=== PATIENT | female | born 1945 | race Caucasian/White ===

== ENCOUNTER 2020-08-11 15:50 | Inpatient (IN) | payer MEDICARE, OTHER ==
[~2020-08-11] VITALS: Ht 170.2 cm; Wt 90.0 kg
[2020-08-11 16:24] LABS: BASOPHILS % 0.5 % (0.0-2.0); HEMATOCRIT. 42.9 % (36.0-48.0); HEMOGLOBIN. 14.6 g/dL (12.0-16.0); LYMPHOCYTES % 28.5 % (20.0-50.0); MEAN CORPUSCULAR HEMOGLOBIN 30.5 pg (28.0-32.0); MEAN CORPUSCULAR VOLUME 89.5 fL (81.0-99.0); MEAN PLATELET VOLUME 8.3 fl (7.4-10.4); MONOCYTES % 7.2 % (2.0-8.0); NEUTROPHILS % 60.8 % (40.0-76.0); PLATELET 259 x1000/uL (130-400); RED BLOOD CELL COUNT 4.79 mill/uL (4.2-5.4); RED CELL DISTRIBUTION WIDTH 13.8 % (11.6-14.6)
[2020-08-11 16:37] LABS: CHLORIDE 104 mEq/L (98-107)
[2020-08-11 16:41] LABS: ETHANOL BLOOD < 10 mg/dL; PROTHROMBIN TIME 10.3 sec (9.6-11.0)
[2020-08-11 16:44] LABS: LDL CHOLESTEROL 109 mg/dL (5-100)
[2020-08-11] MEDS ORDERED: IOHEXOL-350 100 ML BOTTLE ONE ×2 (17:11→23:22)
[2020-08-11] MEDS ORDERED: ASPIRIN 325MG EC TABLET PO ONE (18:00)
[2020-08-11] MEDS ORDERED: CLOPIDOGREL 75MG TABLET PO ONE (18:00)
[2020-08-11 18:47] LABS: CLARITY URINE CLEAR (CLEAR); COLOR URINE YELLOW (YELLOW); KETONES URINE NEGATIVE (NEGATIVE); LEUKOCYTE ESTERASE URINE 1+ (NEGATIVE); NITRITE URINE NEGATIVE (NEGATIVE); OCCULT BLOOD URINE TRACE (NEGATIVE); PH URINE 6.5 (4.5-8.0); PROTEIN URINE NEGATIVE (NEGATIVE); SPECIFIC GRAVITY URINE 1.024 (1.005-1.030); UROBILINOGEN URINE 0.2 E.U./dL (0.2-1.0)
[2020-08-11 20:07] LABS: METHADONE URINE SCREEN NEGATIVE (NEGATIVE); OPIATES URINE SCREEN NEGATIVE (NEGATIVE); PHENCYCLIDINE URINE SCREEN NEGATIVE (NEGATIVE)
[2020-08-11 20:08] LABS: *AMPHETAMINES SCREEN URINE NEGATIVE (NEGATIVE); *BARBITURATES SCREEN URINE NEGATIVE (NEGATIVE); *BENZODIAZEPINES SCREEN URINE NEGATIVE (NEGATIVE); *COCAINE SCREEN URINE NEGATIVE (NEGATIVE); CANNABINOID URINE SCREEN NEGATIVE (NEGATIVE)
[2020-08-11] MEDS ORDERED: DOCUSATE SODIUM 100MG CAPSULE PO PRN (20:15)
[2020-08-11] MEDS ORDERED: ONDANSETRON HCL 4MG/2ML INJ IV PRN (20:15)
[2020-08-11] MEDS ORDERED: HYDROCODONE/ACETAMINOPHEN 5/325MG TABLET PO PRN (20:15)
[2020-08-11] MEDS ORDERED: CLONIDINE 0.1MG TABLET PO PRN (20:15)
[2020-08-11] MEDS ORDERED: ACETAMINOPHEN 325MG TABLET PO PRN (20:15)
[2020-08-11] MEDS ORDERED: MAGNESIUM/ALUMINUM HYDROXIDE/SIMETHICONE 30ML UDC PO PRN (20:15)
[2020-08-11] MEDS ORDERED: GUAIFENESIN 200MG/10ML SUGAR FREE UDC PO PRN (20:15)
[2020-08-11] MEDS: AMLODIPINE 10MG TABLET PO SCH (23:47)
[2020-08-11] MEDS: LISINOPRIL 20MG TABLET PO SCH (23:48)
[2020-08-12] VITALS (7 sets, daily range): BP systolic 130–186; BP diastolic 69–95
[2020-08-12] MEDS ORDERED: ATOR20TA65 MT (02:41)
[2020-08-12] MEDS ORDERED: CHOL200077 MT (02:41)
[2020-08-12] MEDS ORDERED: LOSA1TAB34 MT (02:41)
[2020-08-12] MEDS ORDERED: AMLO2.5T45 MT (02:41)
[2020-08-12] MEDS ORDERED: NAPR220C15 PO (02:41)
[2020-08-12] MEDS ORDERED: MULT-1116 MT (02:41)
[2020-08-12 07:37] LABS: BASOPHILS % 0.7 % (0.0-2.0); EOSINOPHILS % 2.3 % (0.0-5.0); HEMOGLOBIN. 14.2 g/dL (12.0-16.0); LYMPHOCYTES % 18.6 % (20.0-50.0); MEAN CORPUSCULAR HEMOGLOBIN 31.1 pg (28.0-32.0); MEAN CORPUSCULAR VOLUME 89.5 fL (81.0-99.0); MEAN PLATELET VOLUME 7.9 fl (7.4-10.4); MONOCYTES % 7.5 % (2.0-8.0); NEUTROPHILS % 70.9 % (40.0-76.0); PLATELET 248 x1000/uL (130-400); RED BLOOD CELL COUNT 4.58 mill/uL (4.2-5.4); RED CELL DISTRIBUTION WIDTH 13.8 % (11.6-14.6)
[2020-08-12 07:50] LABS: CHLORIDE 107 mEq/L (98-107)
[2020-08-12 08:02] LABS: HDL CHOLESTEROL 59 mg/dL (40-59); LDL CHOLESTEROL 93 mg/dL (5-100)
[2020-08-12] MEDS: CLOPIDOGREL 75MG TABLET PO SCH (08:45)
[2020-08-12] MEDS: LISINOPRIL 20MG TABLET PO SCH (08:46)
[2020-08-12] MEDS: AMLODIPINE 10MG TABLET PO SCH (08:46)
[2020-08-12] MEDS: ENOXAPARIN 40MG/0.4ML SYR SUBCUT SCH (13:25)
[2020-08-12] MEDS ORDERED: CLOPIDOGREL 75MG TABLET PO SCH (16:00)
[2020-08-12] MEDS ORDERED: ATORVASTATIN CALCIUM 40MG TABLET PO SCH (21:00)
[2020-08-13] VITALS (7 sets, daily range): BP systolic 121–167; BP diastolic 54–78
[2020-08-13] MEDS ORDERED: LISINOPRIL 40MG TABLET PO SCH (09:00)
[2020-08-13] MEDS: CLOPIDOGREL 75MG TABLET PO SCH (09:08)
[2020-08-13] MEDS: ENOXAPARIN 40MG/0.4ML SYR SUBCUT SCH (09:09)
[2020-08-13] MEDS: AMLODIPINE 10MG TABLET PO SCH (09:09)
== END 2020-08-13 17:26 | disposition home or self-care (01) | DRG 65 ==
LOC: ER 15:50 → EDBEDREQTM 17:03 → EDBEDREQ 17:03 → EDBEDREQTM 19:10 → EDBEDREQ 19:10 → ENRESERV 21:19 → 5EST 22:24 → 3WST 08-12 15:29
PROVIDERS: ADMIT Hospitalist; ATTEND Hospitalist
DX: I63.9 Cerebral infarction, unspecified (principal); G81.91 Hemiplegia, unspecified affecting right dominant side; I16.0 Hypertensive urgency; E78.5 Hyperlipidemia, unspecified; I10 Essential (primary) hypertension; R63.5 Abnormal weight gain; Z82.49 Family history of ischemic heart disease and other diseases of the circulatory system; Z79.899 Other long term (current) drug therapy; Z68.30 Body mass index [BMI] 30.0-30.9, adult
CPT/HCPCS: 36415; 70496; 70544; 70551; 71045; 80053; 80061; 80305; 80320; 81003; 82962; 83721; 84484; 85025; 93005; 93880; 93970; 95816; 97116; 97162; 97535; 99291; J1650; Q9967; G0480